=== PATIENT | female | born 1965 | race Caucasian/White ===

== ENCOUNTER → 2023-06-05 | Day surgery (SDC) | payer BC ==
[~2023-06-05] MED LIST: ALPRAZolam 0.5 MG TAB PO PRN; HYDROcodone/APAP 5-325MG 1 EACH TAB PO PRN; HYDROmorphone 0.5 MG/0.5 ML SYRINGE IVP PRN
[2023-06-05 09:50] LABS: Mean Platelet Volume 9.1; Platelet Count 228 k/uL (150-450)
[2023-06-05 10:11] VITALS: TEMP 97.8
[2023-06-05 10:16] LABS: INR 1.1 (<1.2); Prothrombin Time 11.6 sec (9.0-12.0)
--- NOTE | 2023-06-05 11:26 | US ---
Limited ultrasound of the liver DATE OF EXAM: 06/05/2023 CLINICAL HISTORY: Elevated liver function studies Preliminary imaging of the liver prior to biopsy demonstrated reduced visualization of the liver. The patient was to have the biopsy to be performed by CT scan. IMPRESSION: 1. See above.
--- NOTE | 2023-06-05 12:20 | CT ---
EXAMINATION TYPE: CT biopsy liver DATE OF EXAM: 06/05/2023 COMPARISON: NONE HISTORY: Elevated LFTs CT DLP: 2097mGycm The procedure was explained to the patient. The risks, complications, benefits, and alternatives wer e discussed and any questions were answered. Informed consent was obtained. Patient was placed supi ne on the CT table and prepped and draped in the usual sterile fashion. All elements of maximal barrier and sterile technique utilized. Utilizing CT guidance, an 18 gauge core biopsy needle access into the posterior segment right lobe o f the liver was achieved and a single 18 gauge core sample was obtained. The patient was stable thro ughout the procedure and remained stable upon discharge. IMPRESSION: 1. Successful 18 gauge core biopsy of the liver.
[2023-06-05 17:25] VITALS: BP 92/60; PULSE 52; RESP 16
== END ==
LOC: RADPROMAIN 08:54
PROVIDERS: ATTEND Internal Medicine Gastroenterology
DX: K76.89 Other specified diseases of liver (principal); Z88.2 Allergy status to sulfonamides; Z79.899 Other long term (current) drug therapy
CPT/HCPCS: 85049; 85610; 88313; 88307; 36415; 76705; 47000; 77012; J1170